=== PATIENT | male | born 1985 | race Caucasian/White ===

== ENCOUNTER 2022-10-01 10:32 | Emergency (ER) | payer OTHER, SELFPAY ==
[2022-10-01 10:34] VITALS: BP 118/80; PULSE 76; RESP 16; TEMP 36.3; O2SAT 98; BMI 43.6
--- NOTE | 2022-10-01 12:06 | ED.GENADULT ---
HPI - General Adult General Date Seen: 10/01/22 Chief complaint: Eye Problems Stated complaint: Lt eye red, painful, sensitive to light Time Seen by Provider: 10/01/22 11:03 Source: patient History of Present Illness HPI narrative: Patient is a 37-year-old male who presents for evaluation of his left eye. He tells me that about a month ago, he sustained a minor scratch from his dog on his left eye. He was seen a couple of times by Ophthalmology. He says he was told the 1st time there was no evidence of a significant abrasion but there was some swelling on the surface of the eye. He was prescribed drops. He return to be seen again because he was having ongoing problems with his vision. He says he has had multiple tests done, says that his eye pressures as far as he knows were normal. He was told at that time that everything looked to be healed up. He says he has continued to have trouble with his vision and had planned to be seen again in follow-up. For the past few mornings however, he has had some irritation and discomfort in the left eye company by some redness and tearing. He notes mild photophobia as well. Vision continues to be affected although it is stable. It seems to improve throughout the day. He has not sustained another injury. He does use CPAP but typically does not have trouble with his eyes. He does not wear contact lenses. 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 He denies other medical history. Related Data Home Medications Medication Instructions Recorded Confirmed escitalopram oxalate 20 mg tablet 20 mg PO DAILY 10/01/22 10/01/22 Previous Rx's Medication Instructions Recorded tobramycin 0.3 % eye drops 1 drp ophthalmic (eye) Q4H #5 mL 10/01/22 Allergies Allergy/AdvReac Type Severity Reaction Status Date / Time No Known Drug Allergies Allergy Verified 10/01/22 10:40 Review of Systems Status of ROS: Reports: 6 or more systems reviewed and unremarkable except as noted in History and below Exam Narrative: Exam Narrative: Vital signs reviewed In general, alert, well-appearing male. Looks comfortable. Head: Normocephalic, atraumatic. Eyes: Mild conjunctival irritation on the left. Lids are normal. No mattering. There is some increased tearing on the left. Extraocular movements are full. No foreign body. ENT: Nares clear. No facial trauma. Neurologic: Facial nerve intact. Skin: Warm and dry. No erythema, warmth, swelling. No rashes. Const: Vital Signs, click to edit/add: Vital Signs - 24 hr 10/01/22 10:34 Temperature 97.4 F L Pulse Rate [Right Pulse Oximeter] 76 Respiratory Rate 16 Blood Pressure [Ri ght Upper Arm] 118/80 Pulse Oximetry 98 Oxygen Delivery Me thod Room Air Documenting provider has reviewed patient's vital signs: yes Course Course Hospital Course: Slit lamp exam with fluorescein reveals some nonspecific uptake over the center of the cornea on the left. I do not see a specific abrasion, but there does appear to be some irregularity over the cornea. Discussed with him I am not certain of the etiology of this. It is possible that he is having some irritation of the cornea overnight, either because he is not fully closing his eye for some reason or because of his CPAP blowing air on his eye. The fact that this bothers him more in the morning and then gets better throughout the day does make me wonder about this. However, given the trauma to his eye a month ago and the fact that he does not feel he is fully recovered, I do think he needs to be re-evaluated to have this looked at again. In the meantime, I have suggested that he restart his antibiotic drops, I have given him a 2nd prescription in case he is running low. Would like him to call his eye clinic tomorrow to arrange for repeat evaluation. Vital Signs Vital signs: Initial Vital Signs Temperature 97.4 F L 10/01/22 10:34 Temperature Source Temporal Artery Scan 10/01/22 10:34 Pulse Rate 76 10/01/22 10:34 Respiratory Rate 16 10/01/22 10:34 Blood Pressure 118/80 10/01/22 10:34 Blood Pressure Mean 92 10/01/22 10:34 Blood Pressure Position Sitting 10/01/22 10:34 Pulse Oximetry 98 10/01/22 10:34 Oxygen Delivery Method 10/01/22 10:34 Vital Signs Temperature 97.4 F L 10/01/22 10:34 Pulse Rate 76 10/01/22 10:34 Respiratory Rate 16 10/01/22 10:34 Blood Pressure 118/80 10/01/22 10:34 Pulse Oximetry 98 12/11/22 10:34 Oxygen Delivery Method 10/01/22 10:34 Temperature 97.4 F L 10/01/22 10:34 Pulse Rate 76 10/01/22 10:34 Respiratory Rate 16 10/01/22 10:34 Blood Pressure 118/80 10/01/22 10:34 Pulse Oximetry 98 10/01/22 10:34 Oxygen Delivery Method 10/01/22 10:34 Discharge Plan Discharge Clinical Impression: Keratitis Patient Disposition: Home, Self-Care Condition: Stable Instructions: Keratitis (ED) Additional Instructions: Antibiotic drops as discussed. Call tomorrow to make a follow-up appointment with ophthalmology for further evaluation. Ibuprofen if needed for discomfort. Consider taping eye shut at night to see if that improves symptoms. Prescriptions: New tobramycin 0.3 % drops 1 drp ophthalmic (eye) Q4H Qty: 5 0RF No Action escitalopram oxalate 20 mg tablet 20 mg PO DAILY Label Comments: TAKE 1 TABLET BY MOUTH EVERY MORNING Stand Alone Forms: MyHealth Info Instructions
--- OUTSIDE RECORDS SUMMARY | 2022-10-01 12:14 | XMS_ITS | Clinical Summary ---
:1985 Author Organization [facility] [place] [address] Care Team Providers Name Role Phone Siva Nguyen MD Primary Care Provider Allergies No known active allergies Medications Medication Sig Dispensed Refills Start Date End Date Status CPAPIndications: CPAP, heated 1 Device 0 12/20/2015 Active Obstructive sleep humidifier, mask, apnea syndrome headgear, filters and tubing. Pressure: 17cm/H2O EPR of 3 Length of Need: 99 escitalopram oxalate Take 1 Tablet (20 90 Tablet 3 02/13/2022 Active (LEXAPRO) 20 mg mg) by mouth tabletIndications: every morning. Obsessive-compulsive disorder, unspecified type, Anxiety busPIRone (BUSPAR) 5 Take 1 Tablet (5 120 Tablet 5 03/27/2022 Active mg tabletIndications: mg) by mouth 2 Anxiety times daily. 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 Resolved Problems Problem Noted Date Resolved Date FOREIGN BODY, CONJUNCTIVAL SAC--L 09/13/20052006 Superficial injury of cornea 06/01/2004 04/03/2007 Immunizations Name Administration Dates Next Due DTaP 09/26/1988, 02/25/1985, 1984, 09/21 Influenza, IIV4 09/27/2016, 09/17/2015 MMR 06/16/1997, 10/28/1985 Polio Virus, Unspecified 09/26/1988, 1984, 1984 Td (Age >=7 Years) 06/16/1997 Tdap 10/23/2012 Family History Medical History Relation Name Comments Diabetes type II Father on pills Good Health Father Good Health Mother Diabetes Paternal Aunt COPD Paternal Grandmother Cancer Paternal Grandmother Diabetes Paternal Uncle Relation Name Status Comments Brother 1 Alive Brother 2 Alive Brother 3 Alive Brother 4 Alive Father Alive Maternal Grandfather Alive Maternal Grandmother Alive Mother Alive Paternal Aunt Paternal Grandfather Paternal Grandmother Paternal Uncle Sister Alive Social History Tobacco Use Types Packs/Day Years Used Date Smoking Tobacco: Former Cigarettes 0 Smokeless Tobacco: Never Tobacco Cessation: Ready to Quit: Yes; C ounseling Given: Yes Alcohol Use Standard Drinks/Week Comments Yes 10 (1 standard drink = 0.6 oz pure alcoh ol) social Sex Assigned at Date Recorded Not on file Obstetrics History Last Filed Vital Signs Vital Sign Reading Time Taken Comments Blood Pressure 139/88 01/31/2022 4:11 PM CDT Pulse 80 01/31/2022 4:11 PM CDT Temperature 36.7 ??C (98.1 ??F) 04/10/2016 5:00 PM CDT Respiratory Rate 16 01/31/2022 4:11 PM CDT Oxygen Saturation 98% 04/10/2016 5:00 PM CDT Inhaled Oxygen Concentration - - Weight 134.7 kg (297 lb) 01/31/2022 4:11 PM CDT Height 175.3 cm (5' 9) 01/31/2022 4:11 PM CDT Body Mass Index 43.86 01/31/2022 4:11 PM CDT Plan of Treatment Health Maintenance Due Date Last Done Comments COVID-19 vaccine series (#1) 01/04/1985 HIV for age 15-65 1999 Hepatitis C screening for age 0907/07/2002 18-79 Lipids for age 35-44 09/27/2021 09/27/2016, 09/17/2015 Influenza for age 9-49 06/22/2022 09/27/2016, 09/17/2015 Tetanus booster 10/23/2022 10/23/2012, 06/16/1997 BMI (ht and wt on same day) for 01/31/2023 01/31/2022, 12/0 04/2016, age 18+ 11/23/2015 Depression screening for age 12+ 01/31/2023 01/31/2022, 09/2021, 01/17/2021, Additional history exists Tdap Completed 10/23/2012 Goals Goal Patient Goal Associated Recent Patient-Stated? Author Type Problems Progress BLOOD PRESSURE Blood Pressure No Anayeli, Nadeen - MAINTAINS BP MD Maribel less than 140/90 Results Not on filefrom Last 3 Months Insurance Payer Benefit Plan Subscriber ID Effective Dates Phone Address Type / Group [employer] [id number]-Presen [phone] [id number] [place] [address] [employer] [id number] 2011-Pres [id number] [address] [phone] [address] [place] [address] [facility] [id number] 2020-Presen [address] [place] [address] [phone] (Home) [place], [place] [phone] (Work) [employer] Workers Comp Self 1985 [id number] [facility] (Home) [place], [place] [phone] (Work) [employer] Workers Comp Self 1985 [address] [facility] (Home) [address] [phone] [place], [place] (Work) [id number] Care Teams Desilverizer Relationship Specialty Start Date End Date Siva Nguyen MD PCP - General Family Practice 01/31/22 [id number] [place], [place] [id number]
[2022-10-01] MEDS: TETRACAINE 0.5% OPHTH 2 DROP EYE-BOTH (12:22)
== END 2022-10-01 12:23 | disposition home or self-care (01) ==
LOC: ED 12:13
PROVIDERS: Emergency Provider Emergency Medicine
DX: H16.9 Unspecified keratitis (principal)
CPT/HCPCS: 65222; 99283; 99284